=== PATIENT | female | born 1995 | race Caucasian/White ===

== ENCOUNTER 2016-09-28 23:16 | Observation (INO) | payer BC ==
[2016-09-28] MEDS ORDERED: ORTHO TRI-CYCL1 EACH PO (23:37)
[2016-09-28 23:58] LABS: BASO % 0.1 % (0-2); EOS % 0.1 % (0-7); HCT-HEMATOCRIT 43.8 % (34.0-49.0); HGB-HEMOGLOBIN 15.2 gm/dl (12.0-15.5); IMMATURE GRANULOCYTES ABSOLUTE 0.02 tho/cmm (0-0.03); IMMATURE GRANULOCYTES PERCENT 0.1 % (0-0.3); LYMPH % 6.5 % (20-45); MCH (MEAN CORPUSCULAR HGB) 28.8 pg (28.0-32.0); MCHC MEAN CORPUSCULAR HGB CONC 34.7 % (32.0-36.0); MCV (MEAN CELL VOLUME) 83.1 fl (82.0-96.0); MEAN PLATELET VOLUME 9.6 cmc (9.4-12.4); MONO % 5.1 % (0-12); MONOCYTE ABSOLUTE COUNT 0.8 tho/cmm (0.0-1.2); NEUTROPHILS % 88.1 % (40-80); PLATELET COUNT 310 tho/cmm (150-450); RED BLOOD COUNT 5.27 mil/cmm (4.00-5.20); RED CELL DISTRIBUTION WIDTH 13.4 % (12.4-16.4); WHITE BLOOD COUNT 14.8 tho/cmm (4.0-10.0)
[2016-09-29 00:09] LABS: PREGNANCY-SERUM NEGATIVE (NEGATIVE)
[2016-09-29 00:38] LABS: ALB/GLOB RATIO 0.8 (0.8-2.0); ALBUMIN 3.9 g/dl (3.5-5.0); ALKALINE PHOSPHATASE 88 U/L (33-138); ALT/SGPT 18 U/L (12-78); BILIRUBIN,TOTAL 0.4 mg/dl (0-1.5); BLOOD UREA NITROGEN 19 mg/dl (6-24); CALCIUM 9.2 mg/dl (8.5-10.5); CARBON DIOXIDE-VENOUS 19 mmol/L (22-32); CHLORIDE 105 mmol/l (96-110); CREATININE 0.85 mg/dl (0.50-1.10); GLUCOSE 109 mg/dL (70-110); LIPASE 130 U/L (73-393); SODIUM 137 mmol/L (135-145); eGFR VALUE FOR BLACK >90 mL/Min
[2016-09-29 00:43] LABS: ANION GAP 17 mmol/L (0-20); AST/SGOT 27 U/L (10-40)
[2016-09-29 02:10] LABS: URINE BILIRUBIN NEGATIVE (NEG); URINE BLOOD LARGE (NEG); URINE GLUCOSE (UA) NEGATIVE (NEG); URINE KETONE LARGE (NEG); URINE LEUKOCYTE ESTERASE NEGATIVE (NEG); URINE NITRITE NEGATIVE (NEG); URINE PROTEIN NEGATIVE (NEG)
[2016-09-29 02:11] LABS: URINE APPEARANCE CLEAR; URINE COLOR YELLOW
[2016-09-29 02:18] LABS: URINE WBC 0-1 /[HPF] (0-5)
[2016-09-29 06:52] LABS: EOS % 0.1 % (0-7); HCT-HEMATOCRIT 36.9 % (34.0-49.0); HGB-HEMOGLOBIN 12.5 gm/dl (12.0-15.5); IMMATURE GRANULOCYTES ABSOLUTE 0.01 tho/cmm (0-0.03); IMMATURE GRANULOCYTES PERCENT 0.1 % (0-0.3); LYMPH % 4.7 % (20-45); LYMPH ABSOLUTE COUNT 0.3 tho/cmm (0.8-4.5); MCH (MEAN CORPUSCULAR HGB) 28.3 pg (28.0-32.0); MCHC MEAN CORPUSCULAR HGB CONC 33.9 % (32.0-36.0); MCV (MEAN CELL VOLUME) 83.5 fl (82.0-96.0); MEAN PLATELET VOLUME 9.3 cmc (9.4-12.4); MONO % 2.2 % (0-12); MONOCYTE ABSOLUTE COUNT 0.2 tho/cmm (0.0-1.2); NEUTROPHIL ABSOLUTE COUNT 6.3 tho/cmm (1.6-8.0); NEUTROPHIL-AUTOMATED 6.3 tho/cmm (1.6-8.0); NEUTROPHILS % 92.9 % (40-80); PLATELET COUNT 222 tho/cmm (150-450); RED BLOOD COUNT 4.42 mil/cmm (4.00-5.20); RED CELL DISTRIBUTION WIDTH 13.6 % (12.4-16.4)
[2016-09-29 06:59] LABS: WHITE BLOOD COUNT 6.8 tho/cmm (4.0-10.0)
[2016-09-29 07:07] LABS: ANION GAP 15 mmol/L (0-20); BLOOD UREA NITROGEN 17 mg/dl (6-24); CALCIUM 7.1 mg/dl (8.5-10.5); CARBON DIOXIDE-VENOUS 20 mmol/L (22-32); CHLORIDE 110 mmol/l (96-110); CREATININE 0.88 mg/dl (0.50-1.10); GLUCOSE 140 mg/dL (70-110); POTASSIUM 3.8 mmol/L (3.7-5.1); SODIUM 141 mmol/L (135-145); eGFR VALUE FOR BLACK >90 mL/Min
[2016-09-29 08:14] LABS: URINE BILIRUBIN NEGATIVE (NEG); URINE BLOOD MODERATE (NEG); URINE GLUCOSE (UA) NEGATIVE (NEG); URINE KETONE SMALL (NEG); URINE LEUKOCYTE ESTERASE NEGATIVE (NEG); URINE NITRITE NEGATIVE (NEG); URINE PROTEIN NEGATIVE (NEG)
[2016-09-29 08:16] LABS: URINE COLOR YELLOW
[2016-09-29 08:29] LABS: URINE APPEARANCE HAZY; URINE BACTERIA 1+
[2016-09-29 08:34] LABS: URINE WBC 0-1 /[HPF] (0-5)
[2016-09-30 05:29] LABS: BASO % 0.2 % (0-2); EOS % 1.1 % (0-7); EOSINOPHIL ABSOLUTE COUNT 0.1 tho/cmm (0.0-0.7); HCT-HEMATOCRIT 36.5 % (34.0-49.0); HGB-HEMOGLOBIN 12.1 gm/dl (12.0-15.5); IMMATURE GRANULOCYTES ABSOLUTE 0.01 tho/cmm (0-0.03); IMMATURE GRANULOCYTES PERCENT 0.2 % (0-0.3); LYMPH % 22.6 % (20-45); LYMPH ABSOLUTE COUNT 1.2 tho/cmm (0.8-4.5); MCH (MEAN CORPUSCULAR HGB) 27.8 pg (28.0-32.0); MCHC MEAN CORPUSCULAR HGB CONC 33.2 % (32.0-36.0); MCV (MEAN CELL VOLUME) 83.7 fl (82.0-96.0); MEAN PLATELET VOLUME 9.2 cmc (9.4-12.4); MONOCYTE ABSOLUTE COUNT 0.6 tho/cmm (0.0-1.2); NEUTROPHIL ABSOLUTE COUNT 3.4 tho/cmm (1.6-8.0); NEUTROPHIL-AUTOMATED 3.4 tho/cmm (1.6-8.0); NEUTROPHILS % 64.9 % (40-80); PLATELET COUNT 200 tho/cmm (150-450); RED BLOOD COUNT 4.36 mil/cmm (4.00-5.20); WHITE BLOOD COUNT 5.3 tho/cmm (4.0-10.0)
[2016-09-30 05:45] LABS: ANION GAP 14 mmol/L (0-20); BLOOD UREA NITROGEN 5 mg/dl (6-24); CALCIUM 7.3 mg/dl (8.5-10.5); CARBON DIOXIDE-VENOUS 22 mmol/L (22-32); CHLORIDE 110 mmol/l (96-110); CREATININE 0.68 mg/dl (0.50-1.10); GLUCOSE 97 mg/dL (70-110); POTASSIUM 3.6 mmol/L (3.7-5.1); SODIUM 142 mmol/L (135-145); eGFR VALUE FOR BLACK >90 mL/Min
== END 2016-09-30 10:45 ==
LOC: EDMED 23:16 → EMR2 09-29 03:52 → CAR1 09-29 05:28
PROVIDERS: Emergency Medicine; Internal Medicine; Nurse Practitioner; ADMIT Hospitalist
DX: A08.11 Acute gastroenteropathy due to Norwalk agent (principal); D72.829 Elevated white blood cell count, unspecified; R31.9 Hematuria, unspecified
CPT/HCPCS: C9113; G0378; J0610; J2405; J7030